=== PATIENT | male | born 1980 ===

== ENCOUNTER 2024-10-23 05:17 | Day surgery (SDC) | payer OTHER ==
[2024-10-13 12:36] VITALS: BP 99/67
[~2024-10-23] VITALS: Ht 172.7 cm; Wt 56.7 kg
[~2024-10-23 05:17] MED LIST: APAP500 MG; CIPRO500 MG; FERRO-TIME325 MG PO; JARDIANCE10 MG PO; LASIX40 MG PO; REVATIO20 MG PO; SYNTHROID175 MCG PO; XARELTO20 MG PO; ZANTAC 7575 MG; ZESTRIL2.5 MG PO
[2024-10-23] MEDS ORDERED: LIDOCAINE HCL 1%/EPINEPHRINE 20ML VIAL IJ ONE (07:11)
[2024-10-23] MEDS ORDERED: HEMOSTATIC MATRIX 1 KIT KIT TOP ONE (07:11)
[2024-10-23] MEDS ORDERED: DIBUCAINE 30 GM TUBE ONE (07:11)
[2024-10-23] MEDS ORDERED: POVIDONE-IODINE 118 ML BOTT TOP ONE (07:11)
[2024-10-23] MEDS ORDERED: BUPIVACAINE HCL/Mpf 0.5% 10ML VIAL ONE (07:11)
[2024-10-23] MEDS ORDERED: METRONIDAZOLE/SODIUM CHLORIDE 500 MG/100 ML PIGGYBACK IV ONE (07:12)
[2024-10-23] MEDS ORDERED: CEFTRIAXONE SODIUM 2,000 MG VIAL ONE (07:12)
[2024-10-23] MEDS ORDERED: TAMSULOSIN HCL 0.4 MG CAP PO ONE ×2 (08:30→11:06)
[2024-10-23] MEDS ORDERED: OXYCODONE HCL5 MG PO (10:00)
[2024-10-23] MEDS ORDERED: MORPHINE SULFATE 4 MG/ML VIAL IV ONE (13:30)
== END 2024-10-23 15:05 | disposition home or self-care (01) ==
LOC: CIR.AMB 05:17
PROVIDERS: ATTEND Surgery
DX: K64.2 Third degree hemorrhoids (principal); K64.4 Residual hemorrhoidal skin tags; E03.8 Other specified hypothyroidism; I50.9 Heart failure, unspecified

== ENCOUNTER 2025-04-16 06:28 | Outpatient (CLI) | payer OTHER ==
[~2025-04-16 06:28] MED LIST changes: +OXYCODONE HCL5 MG PO
[2025-04-16 07:22] LABS: BASO % 1.6 % (0.1-1.2); EOS # 0.13 (0.04-0.54); EOS % 3.0 % (0.7-7.0); LYMPH # 1.17 (1.18-3.74); LYMPH % 26.9 % (19.3-53.1); MEAN PLATELET VOLUME 9.60 fl (9.4-12.4); MONO # 0.72 (0.24-0.82); NEUT # 2.25 (1.56-6.13); NEUT % 51.7 % (34.0-71.1); RED CELL DISTRIBUTION WIDTH 19.3 % (11.6-14.4)
[2025-04-16 07:26] LABS: MONO % 16.6 % (4.7-12.5)
[2025-04-16 08:21] LABS: URINE APPEARANCE Clear; URINE BILIRRUBIN Negative (NEGATIVE); URINE BLOOD Negative; URINE COLOR Yellow; URINE GLUCOSE Negative (NEGATIVE); URINE KETONE Trace (NEGATIVE); URINE LEUKOCYTE Negative; URINE NITRATE Negative; URINE PROTEIN Trace (NEGATIVE); URINE UROBILINOGEN 1.0 E.U./dl
[2025-04-16 08:22] LABS: ALT/SGPT 27.0 U/L (12-78); AST/SGOT 19.0 U/L (15-37); BILIRUBIN TOTAL 0.8 mg/dL (0.3-1.2); BUN CREA RATIO 17.0 (7.0-25.0); CHOL HDL RATIO 3.1 (0-5.0); CREATININE SERUM 0.84 mg/dL (0.70-1.30); GFR 99.26; GLOBULINA 3.3 G/DL (2.4-3.5); GLUCOSE FASTING 84.0 mg/dL (65-100); HDL 37.0 mg/dl (40-60); LDL 69.0 mg/dl (0-130); OSMOLALITY SERUM 281.0 MOSM/KG (275-295); TSH 0.604 uIU/mL (0.358-3.74); VLDL 10.0 (0-39)
[2025-04-16 08:26] LABS: URINE EPITHELIAL CELLS 3.0 uL (0.0-38.8); URINE WBC 4.3 uL (0.0-23.2)
[2025-04-16 08:33] LABS: URINE BACTERIA 2.3 uL (0.0-1933); URINE CAST 0.29 uL (0.0-1.40); URINE RBC 1.6 uL (0.0-20.8)
== END 2025-04-16 06:32 | disposition home or self-care (01) ==
LOC: LAB 06:28
DX: C73 Malignant neoplasm of thyroid gland (principal); E89.0 Postprocedural hypothyroidism; E89.2 Postprocedural hypoparathyroidism; R73.03 Prediabetes; E78.2 Mixed hyperlipidemia

== ENCOUNTER 2025-07-09 06:24 | Outpatient (CLI) | payer OTHER ==
[2025-07-09 07:00] LABS: BASO % 1.8 % (0.1-1.2); EOS # 0.13 (0.04-0.54); EOS % 2.9 % (0.7-7.0); LYMPH # 1.16 (1.18-3.74); LYMPH % 25.7 % (19.3-53.1); MEAN PLATELET VOLUME 9.70 fl (9.4-12.4); MONO # 0.74 (0.24-0.82); NEUT # 2.40 (1.56-6.13); NEUT % 53.0 % (34.0-71.1); RED CELL DISTRIBUTION WIDTH 19.2 % (11.6-14.4)
[2025-07-09 07:12] LABS: MONO % 16.4 % (4.7-12.5)
[2025-07-09 07:36] LABS: ALT/SGPT 28.0 U/L (12-78); AST/SGOT 24.0 U/L (15-37); BILIRUBIN TOTAL 0.51 mg/dL (0.3-1.2); BUN CREA RATIO 16.0 (7.0-25.0); CHOL HDL RATIO 3.1 (0-5.0); CREATININE SERUM 0.92 mg/dL (0.70-1.30); GFR 89.37; GLOBULINA 3.5 G/DL (2.4-3.5); GLUCOSE FASTING 93.0 mg/dL (65-100); HDL 38.0 mg/dl (40-60); LDL 67.0 mg/dl (0-130); OSMOLALITY SERUM 285.0 MOSM/KG (275-295); VLDL 11.0 (0-39)
== END 2025-07-09 06:46 | disposition home or self-care (01) ==
LOC: LAB 06:24
DX: E78.00 Pure hypercholesterolemia, unspecified (principal); I11.0 Hypertensive heart disease with heart failure; I50.22 Chronic systolic (congestive) heart failure

== ENCOUNTER 2025-08-17 06:21 | Outpatient (CLI) | payer OTHER ==
[2025-08-17 07:10] LABS: BASO % 1.6 % (0.1-1.2); EOS # 0.20 (0.04-0.54); EOS % 3.6 % (0.7-7.0); LYMPH # 1.40 (1.18-3.74); LYMPH % 25.4 % (19.3-53.1); MEAN PLATELET VOLUME 10.20 fl (9.4-12.4); MONO # 1.07 (0.24-0.82); NEUT # 2.74 (1.56-6.13); NEUT % 49.8 % (34.0-71.1); RED CELL DISTRIBUTION WIDTH 19.2 % (11.6-14.4)
[2025-08-17 07:16] LABS: MONO % 19.4 % (4.7-12.5)
[2025-08-17 08:13] LABS: ALT/SGPT 27.0 U/L (12-78); AST/SGOT 21.0 U/L (15-37); BILIRUBIN TOTAL 0.77 mg/dL (0.3-1.2); BUN CREA RATIO 19.0 (7.0-25.0); CHOL HDL RATIO 3.3 (0-5.0); CREATININE SERUM 0.93 mg/dL (0.70-1.30); GFR 88.26; GLOBULINA 3.6 G/DL (2.4-3.5); GLUCOSE FASTING 96.0 mg/dL (65-100); HDL 38.0 mg/dl (40-60); LDL 77.0 mg/dl (0-130); OSMOLALITY SERUM 283.0 MOSM/KG (275-295); TSH 0.737 uIU/mL (0.358-3.74); VLDL 9.0 (0-39)
[2025-08-17 08:21] LABS: T4 FREE 1.64 NG/ML (0.76-1.46)
== END 2025-08-17 06:25 | disposition home or self-care (01) ==
LOC: LAB 06:21
DX: E03.9 Hypothyroidism, unspecified (principal); C73 Malignant neoplasm of thyroid gland; E55.9 Vitamin D deficiency, unspecified; E21.1 Secondary hyperparathyroidism, not elsewhere classified